=== PATIENT | male | born 1970 | race Caucasian/White ===

== ENCOUNTER 2021-11-30 00:34 | Inpatient (IN) | payer MEDICAID ==
[~2021-11-30] VITALS: Ht 175.3 cm; Wt 79.6 kg
[2021-11-30] MEDS ORDERED: magnesium hydroxide 30ml (MOM) UD suspension PO PRN (03:30)
[2021-11-30] MEDS ORDERED: potassium Cl 20 mEq SR tablet PO PRN ×2 (03:30)
[2021-11-30] MEDS ORDERED: acetaminophen 325mg tablet PO PRN (03:30)
[2021-11-30] MEDS ORDERED: magnesium 4gm in 100ml NS 100 ML IV PRN (03:30)
[2021-11-30] MEDS ORDERED: ondansetron/PF 4mg/2ml inj IV PRN (03:30)
[2021-11-30] MEDS ORDERED: magnesium Cl slow-release 64mg tablet PO PRN (03:30)
[2021-11-30] MEDS ORDERED: potassium CL 10mEq/100ml bag 100 ML IV PRN (03:30)
[2021-11-30] MEDS ORDERED: mag hydrox/Alum hydrox/simeth 30ml oral suspension PO PRN (03:30)
[2021-11-30] MEDS ORDERED: magnesium 2GM in 50ml NS 50 ML IV PRN (03:30)
[2021-11-30] MEDS ORDERED: PERFLUTREN PROTEIN-A MICROSPHR (Optison) 0.22 MG/ML 3ML VIAL IV PRN (03:30)
[2021-11-30 04:00] LABS: MAGNESIUM 1.9 MG/DL (1.5-2.4); POTASSIUM 3.8 MMOL/L (3.5-5.1)
[2021-11-30] MEDS: normal saline 1000ml 1,000 ML IV SCH ×3 (04:53→23:23)
[2021-11-30 05:04] VITALS: BP 109/72
[2021-11-30 06:00] VITALS: BP 113/74
--- NOTE | 2021-11-30 06:25 | NUR ---
received report from MARY Huynh
--- NOTE | 2021-11-30 07:41 | NUR ---
PAGER ID: [phone] MESSAGE: [id number], Michelle, patient here with cellulitis of arm and iv drug abuse no blood cultures done here, they're ruling out endocarditis. do you want a set before i hang any antibiotics? [id number]
[2021-11-30] MEDS: K and/or MAG REPLACEMENT MC SCH ×2 (08:00→20:00)
[2021-11-30] MEDS: docusate sod 100mg capsule PO SCH ×2 (08:00→19:26)
[2021-11-30] MEDS ORDERED: heparin, porcine 5000 units/ml vial SQ SCH (08:00)
[2021-11-30] MEDS: clindamycin 600mg/D5W 50ml 50 ML IV SCH ×2 (09:10→15:01)
--- NOTE | 2021-11-30 11:09 | NUR ---
Met with patient for substance use and to see if patient wanted resources for treatment options. Patient is interested in inpatient and outpatient treatment. I gave patient [facility] number, list of resources and my card to call me with any questions.
[2021-11-30] MEDS: heparin, porcine 5000 units/ml vial SQ SCH ×2 (11:52→19:31)
[2021-11-30] MEDS: HYDROcodone/acetaminophen 5mg/325mg tablet PO PRN ×2 (11:54→19:28)
[2021-11-30 12:00] VITALS: BP 110/70
--- NOTE | 2021-11-30 12:11 | NUR ---
Gave patient norco for pain and heparin, had to call pharmacy as med was not showing to remove in [facility]. Platelets [place] record from [place] [id number]
[2021-11-30] MEDS ORDERED: vancomycin/NS 1 GM ADD-VANTAGE 250 ML IV ONE (12:20)
[2021-11-30 13:40] LABS: CREATININE 0.82 MG/DL (0.60-1.10); eGFR > 90 ML/MIN
[2021-11-30] MEDS ORDERED: NO HOME MEDS (13:58)
[2021-11-30 15:54] VITALS: BP 96/58
[2021-11-30] MEDS ORDERED: CefTRIAXone 2gm/NS 100ml IVPB 100 ML IV SCH (16:00)
[2021-11-30 18:00] VITALS: BP 96/61
--- NOTE | 2021-11-30 18:18 | NUR ---
Report given to Faith HERNANDEZ
[2021-11-30] MEDS: vancomycin/NS 1 GM ADD-VANTAGE 250 ML X 1 DOSE IV SCH (19:25)
[2021-11-30 22:00] VITALS: BP 104/64
[2021-12-01 02:00] VITALS: BP 110/71
[2021-12-01] MEDS: vancomycin/NS 1 GM ADD-VANTAGE 250 ML X 1 DOSE IV SCH ×2 (03:30→11:35)
[2021-12-01] MEDS: HYDROcodone/acetaminophen 5mg/325mg tablet PO PRN ×3 (04:32→20:43)
--- NOTE | 2021-12-01 06:11 | NUR ---
Received patient report from MARY Cuevas
[2021-12-01 06:35] LABS: BASOPHILS % (AUTO) 0.2 % (0-1); EOSINOPHILS # (AUTO) 0.1 X10'3 (0-0.9); EOSINOPHILS % (AUTO) 1.1 % (0-6); HEMATOCRIT 36.3 % (42.0-52.0); HEMOGLOBIN 12.5 g/dl (14.0-17.9); LYMPHOCYTES # (AUTO) 1.3 X10'3 (1.1-4.8); MEAN CORPUSCULAR HEMOGLOBIN 29.4 PG (27.0-31.0); MEAN CORPUSCULAR HGB CONC 34.5 g/dL (33.0-36.5); MEAN CORPUSCULAR VOLUME 85.2 FL (78-98); MEAN PLATELET VOLUME 7.7 FL (7.4-10.4); MONOCYTES # (AUTO) 0.9 X10'3 (0-0.9); MONOCYTES % (AUTO) 8.6 % (2-12); NEUTROPHILS # (AUTO) 7.9 X10'3 (1.8-7.7); NEUTROPHILS % (AUTO) 77.1 % (42-75); PLATELET COUNT 207 X10'3 (140-440); RED BLOOD COUNT 4.26 X10'6 (4.70-6.10); RED CELL DISTRIBUTION WIDTH 12.9 % (11.5-14.5); WHITE BLOOD COUNT 10.3 X10'3 (4.5-11.0)
[2021-12-01 06:53] VITALS: BP 107/71
[2021-12-01 07:00] LABS: ALANINE AMINOTRANSFERASE 15 U/L (12-78); ALBUMIN 2.9 G/DL (3.4-5.0); ALKALINE PHOSPHATASE 50 IU/L (46-116); ANION GAP 5 (8-16); ASPARTATE AMINO TRANSFERASE 13 U/L (10-37); BILIRUBIN,TOTAL 0.5 MG/DL (0.1-1.0); BLOOD UREA NITROGEN 11 MG/DL (7-18); BUN/CREATININE RATIO 17.5 (5.4-32.0); CALCIUM 7.8 MG/DL (8.5-10.1); CHLORIDE 108 MMOL/L (99-107); CREATININE 0.63 MG/DL (0.60-1.10); GLUCOSE 110 MG/DL (70-104); POTASSIUM 4.1 MMOL/L (3.5-5.1); SODIUM 138 MMOL/L (135-145); TOTAL CARBON DIOXIDE 24.6 MMOL/L (24-32); TOTAL PROTEIN 5.9 G/DL (6.4-8.2); eGFR > 90 ML/MIN
[2021-12-01] MEDS: docusate sod 100mg capsule PO SCH ×2 (08:00→19:29)
[2021-12-01] MEDS: K and/or MAG REPLACEMENT MC SCH ×2 (08:00→19:29)
[2021-12-01] MEDS: heparin, porcine 5000 units/ml vial SQ SCH ×2 (09:17→20:42)
--- NOTE | 2021-12-01 09:30 | NUR ---
Patients arm much more swollen and red today compared to yesterday with redness extending outside of sharpie lines that were marked yesterday by this RN. Also much more warm to the touch today compared to yesterday. Patient has a good pulse and cap refill, pain is manageable to patient at this time.
[2021-12-01] MEDS: normal saline 1000ml 1,000 ML IV SCH ×3 (09:54→23:33)
--- NOTE | 2021-12-01 10:00 | NUR ---
Spoke with hospitalist about concerns of patients increase in redness warmth and swelling in arm today. Instructed to elevate with pillows and use ice as needed.
[2021-12-01 11:21] VITALS: BP 125/72
[2021-12-01] MEDS ORDERED: VANCOMYCIN LEVEL IV ONE (11:30)
[2021-12-01] MEDS ORDERED: vancomycin inj 500 MG in normal saline 100ml IV soln 100 ML IV ONE (13:00)
[2021-12-01 16:02] VITALS: BP 112/68
[2021-12-01] MEDS: ceFAZolin/D5W- 1GM premix 50 ML IV SCH ×2 (16:32→23:32)
[2021-12-01 18:00] VITALS: BP 123/86
--- NOTE | 2021-12-01 18:17 | NUR ---
Report given to MARY Cuevas
[2021-12-01] MEDS: clindamycin 600mg/D5W 50ml 50 ML IV SCH (19:39)
[2021-12-01 22:00] VITALS: BP 97/73
[2021-12-02] VITALS (7 sets, daily range): BP systolic 101–133; BP diastolic 66–77
[2021-12-02] MEDS: clindamycin 600mg/D5W 50ml 50 ML IV SCH ×4 (02:09→19:51)
[2021-12-02] MEDS: normal saline 1000ml 1,000 ML IV SCH (04:34)
--- NOTE | 2021-12-02 06:22 | NUR ---
Report received from MARY Cuevas
[2021-12-02 06:44] LABS: BASOPHILS % (AUTO) 0.4 % (0-1); EOSINOPHILS # (AUTO) 0.2 X10'3 (0-0.9); HEMATOCRIT 37.7 % (42.0-52.0); HEMOGLOBIN 13.2 g/dl (14.0-17.9); LYMPHOCYTES # (AUTO) 1.3 X10'3 (1.1-4.8); LYMPHOCYTES % (AUTO) 16.3 % (21-51); MEAN CORPUSCULAR HEMOGLOBIN 29.7 PG (27.0-31.0); MEAN CORPUSCULAR VOLUME 84.9 FL (78-98); MEAN PLATELET VOLUME 7.8 FL (7.4-10.4); MONOCYTES # (AUTO) 0.6 X10'3 (0-0.9); MONOCYTES % (AUTO) 7.9 % (2-12); NEUTROPHILS % (AUTO) 73.4 % (42-75); PLATELET COUNT 216 X10'3 (140-440); RED BLOOD COUNT 4.44 X10'6 (4.70-6.10); RED CELL DISTRIBUTION WIDTH 12.7 % (11.5-14.5); WHITE BLOOD COUNT 8.2 X10'3 (4.5-11.0)
[2021-12-02 07:01] LABS: ALANINE AMINOTRANSFERASE 16 U/L (12-78); ALBUMIN/GLOBULIN RATIO 0.9 (1.1-1.5); ALKALINE PHOSPHATASE 54 IU/L (46-116); ANION GAP 8 (8-16); ASPARTATE AMINO TRANSFERASE 15 U/L (10-37); BILIRUBIN,TOTAL 0.5 MG/DL (0.1-1.0); BLOOD UREA NITROGEN 9 MG/DL (7-18); BUN/CREATININE RATIO 14.1 (5.4-32.0); CALCIUM 8.3 MG/DL (8.5-10.1); CHLORIDE 107 MMOL/L (99-107); CREATININE 0.64 MG/DL (0.60-1.10); GLUCOSE 98 MG/DL (70-104); POTASSIUM 3.8 MMOL/L (3.5-5.1); SODIUM 140 MMOL/L (135-145); TOTAL PROTEIN 6.5 G/DL (6.4-8.2); eGFR > 90 ML/MIN
[2021-12-02] MEDS: ceFAZolin/D5W- 1GM premix 50 ML IV SCH ×2 (07:03→16:33)
[2021-12-02] MEDS: K and/or MAG REPLACEMENT MC SCH ×2 (08:00→20:00)
[2021-12-02] MEDS: heparin, porcine 5000 units/ml vial SQ SCH ×2 (08:28→19:51)
[2021-12-02] MEDS: docusate sod 100mg capsule PO SCH ×2 (08:29→20:00)
[2021-12-02] MEDS: HYDROcodone/acetaminophen 5mg/325mg tablet PO PRN ×3 (08:36→20:03)
[2021-12-02] MEDS ORDERED: VANCOMYCIN LEVEL IV ONE (11:30)
--- NOTE | 2021-12-02 18:23 | NUR ---
Report given to Faith HERNANDEZ
--- NOTE | 2021-12-02 21:25 | NUR ---
Report given to Marcelina HERNANDEZ on surgical. All POC and current concerns discussed with receiving nurse. Informed receiving nurse that patient only skin issue was to right elbow area and that cellulitis had been marked. Receiving nurse stated that she would complete her 2 RN skin check with a nurse on her unit. Patient was transported to [facility] with all of his belongings, chart and medications on unit.
--- NOTE | 2021-12-02 21:30 | NUR ---
PATIENT TRANSFERRED TO ROOM 347A FROM PCU AFTER REPORT WAS GIVEN BY DEMARCUS HERNANDEZ. PLACED COMFORTABLE IN BED. VITAL SIGNS TAKEN AND RECORDED.
[2021-12-03] VITALS: BP 123/81
[2021-12-03] MEDS: ceFAZolin/D5W- 1GM premix 50 ML IV SCH ×2 (00:37→08:00)
[2021-12-03] MEDS: clindamycin 600mg/D5W 50ml 50 ML IV SCH ×2 (02:45→08:00)
--- NOTE | 2021-12-03 06:30 | NUR ---
Problems reprioritized. Patient report given, questions answered & plan of care reviewed with JERRI HERNANDEZ.
[2021-12-03 06:33] LABS: ALANINE AMINOTRANSFERASE 11 U/L (12-78); ALBUMIN 2.8 G/DL (3.4-5.0); ALBUMIN/GLOBULIN RATIO 0.7 (1.1-1.5); ALKALINE PHOSPHATASE 52 IU/L (46-116); ANION GAP 10 (8-16); ASPARTATE AMINO TRANSFERASE 10 U/L (10-37); BILIRUBIN,TOTAL 0.3 MG/DL (0.1-1.0); BLOOD UREA NITROGEN 14 MG/DL (7-18); BUN/CREATININE RATIO 15.4 (5.4-32.0); CALCIUM 8.6 MG/DL (8.5-10.1); CHLORIDE 103 MMOL/L (99-107); CREATININE 0.91 MG/DL (0.60-1.10); GLUCOSE 104 MG/DL (70-104); POTASSIUM 4.2 MMOL/L (3.5-5.1); SODIUM 140 MMOL/L (135-145); TOTAL CARBON DIOXIDE 27.2 MMOL/L (24-32); TOTAL PROTEIN 6.6 G/DL (6.4-8.2); eGFR 87 ML/MIN
[2021-12-03 06:36] LABS: BASOPHILS % (AUTO) 0.5 % (0-1); EOSINOPHILS # (AUTO) 0.3 X10'3 (0-0.9); EOSINOPHILS % (AUTO) 4.5 % (0-6); HEMATOCRIT 40.3 % (42.0-52.0); HEMOGLOBIN 13.8 g/dl (14.0-17.9); LYMPHOCYTES # (AUTO) 1.5 X10'3 (1.1-4.8); LYMPHOCYTES % (AUTO) 24.8 % (21-51); MEAN CORPUSCULAR HEMOGLOBIN 29.5 PG (27.0-31.0); MEAN CORPUSCULAR HGB CONC 34.3 g/dL (33.0-36.5); MEAN CORPUSCULAR VOLUME 86.1 FL (78-98); MEAN PLATELET VOLUME 7.5 FL (7.4-10.4); MONOCYTES # (AUTO) 0.7 X10'3 (0-0.9); MONOCYTES % (AUTO) 11.1 % (2-12); NEUTROPHILS # (AUTO) 3.6 X10'3 (1.8-7.7); NEUTROPHILS % (AUTO) 59.1 % (42-75); PLATELET COUNT 244 X10'3 (140-440); RED BLOOD COUNT 4.68 X10'6 (4.70-6.10); RED CELL DISTRIBUTION WIDTH 13.2 % (11.5-14.5); WHITE BLOOD COUNT 6.1 X10'3 (4.5-11.0)
[2021-12-03 08:00] VITALS: BP 97/57
[2021-12-03] MEDS: docusate sod 100mg capsule PO SCH (08:00)
[2021-12-03] MEDS: K and/or MAG REPLACEMENT MC SCH (08:00)
[2021-12-03] MEDS: heparin, porcine 5000 units/ml vial SQ SCH (08:00)
[2021-12-03 11:00] VITALS: BP 102/70
[2021-12-03] MEDS ORDERED: CLE150C PO (12:47)
--- NOTE | 2021-12-03 13:54 | NUR ---
PAGER ID: [phone] MESSAGE: [phone]. Patient wants to know if he is able to return to work/lift heavy objects. She HERNANDEZ [id number]
[2021-12-03] MEDS ORDERED: clindamycin 150mg capsule PO SCH (14:00)
--- NOTE | 2021-12-03 15:15 | NUR ---
Discharge paperwork reviewed with patient. IV removed, catheter tip is intact. [facility] pharmacy called, they will be facing over medication to [facility] in [place]. Patient is free from injuries.
== END 2021-12-03 15:05 | disposition home or self-care (01) | DRG 383 ==
LOC: ER 00:35 → ED HOLD 03:30 → PCU 3S 04:20 → SUR 3N 12-02 21:24
PROVIDERS: ADMIT Internal Medicine; ATTEND Family Medicine
DX: L03.113 Cellulitis of right upper limb (principal); I30.9 Acute pericarditis, unspecified; B19.20 Unspecified viral hepatitis C without hepatic coma; F15.10 Other stimulant abuse, uncomplicated; I45.10 Unspecified right bundle-branch block; R07.89 Other chest pain; Z82.49 Family history of ischemic heart disease and other diseases of the circulatory system; Z56.0 Unemployment, unspecified; Z71.51 Drug abuse counseling and surveillance of drug abuser
CPT/HCPCS: 36415; 80053; 80202; 82565; 83735; 84132; 84484; 85025; 85651; 87040; 87081; 93005; 93306; 99285; G0378; J0690; J0696; J1644; J3370; J3490; J7030